=== PATIENT | female | born 1985 | race Caucasian/White ===

== ENCOUNTER → 2016-04-24 | Outpatient (REF) | payer OTHER ==
[~2016-04-24] MED LIST: BIOT50004 PO; HYDR-3713 PO; LUNE1TAB5 PO; MODA200T15 PO; NEXI40CA PO; PROP60TA14 PO; PROZ40CA PO; TRAZ50TA4 PO; ZYRT10CA PO
== END ==
LOC: M SFHCLERA 18:14
PROVIDERS: ATTEND Nurse Practitioner Family
DX: R30.0 Dysuria (principal)

== ENCOUNTER 2016-06-25 18:00 | Emergency (ER) | payer OTHER ==
[~2016-06-25] VITALS: Ht 154.9 cm; Wt 67.1 kg
[2016-06-25] MEDS ORDERED: NS 1,000 ML IV SCH (19:20)
[2016-06-25] MEDS ORDERED: ONDANSETRON 4MG/2ML VIAL (J2405) IV ONE (19:30)
[2016-06-25] MEDS: MORPHINE 2 MG/ML 1ML SYRINGE IV PRN ×3 (19:54→21:30)
[2016-06-25 20:02] LABS: BASO % 0.4 % (0.0-1.0); EOS % 0.5 % (0.0-3.0); LARGE UNSTAINED CELL # 0.1 K/mm3 (0.0-0.4); LARGE UNSTAINED CELL % 1.5 % (0.0-4.0); LYMPH # 1.8 K/mm3 (1.5-4.5); LYMPH % 24.5 % (24.0-44.0); MEAN CORPUSCULAR HGB CONC 33.5 g/dl (32.0-36.5); MEAN CORPUSCULAR VOLUME 89.5 fl (80.0-96.0); MONO # 0.3 K/mm3 (0.0-0.8); MONO % 4.4 % (0.0-5.0); NEUTROPHILS # 4.8 K/mm3 (1.8-7.7); NEUTROPHILS % 68.6 % (36.0-66.0); PLATELET COUNT, AUTOMATED 272 k/mm3 (150-450)
[2016-06-25 20:09] LABS: INR 0.94
[2016-06-25 20:17] LABS: CONTROL LINE HCG INT CTR LINE PRESENT
[2016-06-25 20:25] LABS: ALBUMIN/GLOBULIN RATIO 1.11 (1.00-1.93); ALKALINE PHOSPHATASE 77 U/L (45-117); ALT/SGPT 21 U/L (12-78); ANION GAP 7 MEQ/L (8-16); AST/SGOT 8 U/L (15-37); BILIRUBIN,DIRECT 0.1 MG/DL (0.0-0.2); BILIRUBIN,TOTAL 0.3 MG/DL (0.2-1.0); BLOOD UREA NITROGEN 13 MG/DL (7-18); CALCIUM LEVEL 8.6 MG/DL (8.5-10.1); CARBON DIOXIDE LEVEL 27 MEQ/L (21-32); CHLORIDE LEVEL 105 MEQ/L (98-107); CREATININE FOR GFR 0.81 MG/DL (0.55-1.02); GLOMERULAR FILTRATION RATE > 60.0 (>60); GLUCOSE, FASTING 97 MG/DL (70-105); POTASSIUM SERUM 4.1 MEQ/L (3.5-5.1); SODIUM LEVEL 139 MEQ/L (136-145); TOTAL PROTEIN 7.6 GM/DL (6.4-8.2)
--- NOTE | 2016-06-25 20:30 | REPUSA ---
CT of the abdomen and pelvis without contrast Clinical statement: Pain. Technique: Multiple axial CT images were obtained from the base of the lungs to the floor of the pelv is utilizing 5 mm axial slices without administration of contrast. Coronal and sagittal reconstructio ns were also obtained. No comparison is available. Findings: Chest: The visualized lung bases are clear. Abdomen: The kidneys are normal in size bilaterally. There is no evidence of hydronephrosis or nephro lithiasis. The liver, spleen, pancreas, gallbladder and adrenal glands are unremarkable. The aorta de monstrates normal caliber and contour. There is no abdominal lymphadenopathy or ascites. Pelvis: The bowel is unremarkable, with no obstructive or inflammatory changes. The urinary bladder i s within normal limits. There is no pelvic lymphadenopathy or ascites. The other pelvic structures ap pear unremarkable. Bones: There are no suspicious osseous abnormalities seen. Impression: Unremarkable CT examination of the abdomen and pelvis.
[2016-06-25] MEDS ORDERED: CIPROFLOXACIN 500 MG TAB PO ONE (21:45)
[2016-06-25] MEDS ORDERED: PHENAZOPYRIDINE 100 MG TAB PO ONE (21:45)
[2016-06-25] MEDS ORDERED: CIPR500T89 PO (21:47)
[2016-06-25] MEDS ORDERED: PYRI200T5 PO (21:47)
[2016-06-25 22:01] VITALS: BP 116/69
== END 2016-06-25 22:20 | disposition home or self-care (01) ==
LOC: M ED 19:18
DX: N39.0 Urinary tract infection, site not specified (principal)
CPT/HCPCS: 74176; 80048; 80076; 81001; 83690; 84703; 85025; 85610; 86850; 86900; 86901; 96374; 96375; 96376; 99282; J2405

== ENCOUNTER 2016-10-15 16:29 | Emergency (ER) | payer OTHER ==
[~2016-10-15] VITALS: Ht 157.5 cm; Wt 70.4 kg
[~2016-10-15 16:29] MED LIST changes: +CIPR-249 PO; +PYRI1TAB5 PO; +TRAZ50TA11 PO; -TRAZ50TA4 PO
[2016-10-15] MEDS ORDERED: PROV100T25 (16:40)
[2016-10-15] MEDS ORDERED: D 50CAP (16:40)
[2016-10-15] MEDS ORDERED: ZOLP10TA2 (16:40)
[2016-10-15] MEDS ORDERED: CELE1CAP4 (16:40)
[2016-10-15] MEDS ORDERED: VENL150C43 (16:40)
[2016-10-15] MEDS ORDERED: HYDR-2808 (16:40)
[2016-10-15] MEDS ORDERED: VENL75CA47 (16:40)
[2016-10-15] MEDS ORDERED: NS 1,000 ML IV ONE (18:00)
[2016-10-15 18:40] LABS: BASO # 0.1 K/mm3 (0.0-0.2); BASO % 1.2 % (0.0-1.0); EOS % 0.8 % (0.0-3.0); LARGE UNSTAINED CELL # 0.2 K/mm3 (0.0-0.4); LARGE UNSTAINED CELL % 3.4 % (0.0-4.0); LYMPH # 2.1 K/mm3 (1.5-4.5); LYMPH % 32.4 % (24.0-44.0); MEAN CORPUSCULAR HEMOGLOBIN 29.1 pg (27.0-33.0); MEAN CORPUSCULAR HGB CONC 32.5 g/dl (32.0-36.5); MEAN CORPUSCULAR VOLUME 89.6 fl (80.0-96.0); MONO # 0.4 K/mm3 (0.0-0.8); NEUTROPHILS # 3.3 K/mm3 (1.8-7.7); NEUTROPHILS % 55.1 % (36.0-66.0); PLATELET COUNT, AUTOMATED 296 k/mm3 (150-450); RED CELL DISTRIBUTION WIDTH 12.6 % (11.5-14.5)
[2016-10-15 18:45] LABS: CONTROL LINE UCG INT CTR LINE PRESENT
[2016-10-15 19:43] LABS: ALBUMIN 3.6 GM/DL (3.2-5.2); ALBUMIN/GLOBULIN RATIO 1.03 (1.00-1.93); ALKALINE PHOSPHATASE 63 U/L (45-117); ALT/SGPT 39 U/L (12-78); ANION GAP 6 MEQ/L (8-16); AST/SGOT 23 U/L (15-37); BILIRUBIN,DIRECT < 0.1 MG/DL (0.0-0.2); BILIRUBIN,TOTAL 0.2 MG/DL (0.2-1.0); BLOOD UREA NITROGEN 9 MG/DL (7-18); CALCIUM LEVEL 8.5 MG/DL (8.5-10.1); CARBON DIOXIDE LEVEL 27 MEQ/L (21-32); CHLORIDE LEVEL 107 MEQ/L (98-107); GLOMERULAR FILTRATION RATE > 60.0 (>60); GLUCOSE, FASTING 99 MG/DL (70-105); POTASSIUM SERUM 4.3 MEQ/L (3.5-5.1); SODIUM LEVEL 140 MEQ/L (136-145); TOTAL PROTEIN 7.1 GM/DL (6.4-8.2)
[2016-10-15 20:25] VITALS: BP 124/70
--- NOTE | 2016-10-15 21:02 | ECGEPIP ---
Stationary ECG Study [facility] - ED Test Date: 2016-10-15 Pat Name: AMRIT ATKINSON Department: Room: - Gender: F Parking Control Officer: sydni : 1985 Requested By: ELMER STEWART PA-C Order Number: [id number] Reading MD: Nicole Pina Measurements Intervals [place] Rate: 76 P: 58 [place]: 151 QRS: 51 QRSD: 82 T: -9 QT: 359 QTc: 405 Interpretive Statements SINUS RHYTHM MODERATE T-WAVE ABNORMALITY, CONSIDER ANTERIOR ISCHEMIA, COMPARED 03/07/14 Electronically Signed On 10-15-2016 21:02:06 EDT by Nicole Pina
== END 2016-10-15 20:25 | disposition home or self-care (01) ==
LOC: M ED 16:29
DX: E86.0 Dehydration (principal); R20.0 Anesthesia of skin

== ENCOUNTER → 2016-11-25 | Outpatient (CLI) | payer OTHER ==
[~2016-11-25] MED LIST changes: +CELE1CAP4; +D 50CAP; +HYDR-2808; +PROV100T25; +VENL150C43; +VENL75CA47; +ZOLP10TA2
== END ==
LOC: M OUTALCOH 12:42
PROVIDERS: ATTEND Psychiatry & Neurology Psychiatry
DX: Z13.9 Encounter for screening, unspecified (principal); F11.20 Opioid dependence, uncomplicated

== ENCOUNTER 2016-12-02 10:00 | Outpatient (RCR) | payer OTHER | END 2016-12-05 | LOC: M OUTALCOH 10:00 | PROVIDERS: ATTEND Psychiatry & Neurology Psychiatry | DX: F11.20 Opioid dependence, uncomplicated (principal); F17.200 Nicotine dependence, unspecified, uncomplicated ==

== ENCOUNTER → 2017-02-04 | Outpatient (RCR) | payer OTHER | LOC: M OUTALCOH 01-14 10:00 | PROVIDERS: ATTEND Psychiatry & Neurology Psychiatry | DX: F11.20 Opioid dependence, uncomplicated (principal); F17.200 Nicotine dependence, unspecified, uncomplicated ==

== ENCOUNTER 2017-02-09 10:00 | Outpatient (RCR) | payer OTHER | END 2017-03-07 | LOC: M OUTALCOH 02-11 10:00 | DX: F11.20 Opioid dependence, uncomplicated (principal); F17.200 Nicotine dependence, unspecified, uncomplicated ==

== ENCOUNTER 2017-03-18 15:42 | Outpatient (RCR) | payer OTHER | END 2017-04-07 | LOC: M OUTALCOH 15:42 | DX: F11.20 Opioid dependence, uncomplicated (principal); F17.200 Nicotine dependence, unspecified, uncomplicated ==

== ENCOUNTER 2017-04-08 15:59 | Outpatient (RCR) | payer OTHER | END 2017-05-05 | LOC: M OUTALCOH 15:59 | DX: F11.20 Opioid dependence, uncomplicated (principal); F17.200 Nicotine dependence, unspecified, uncomplicated ==

== ENCOUNTER → 2023-12-16 | Outpatient (REF) ==
[~2023-12-16] MED LIST changes: -BIOT50004 PO; +BIOT5CAP8 PO; -HYDR-2808; +HYDR-4429; +TRAZ-252 PO; -TRAZ50TA11 PO
== END ==
LOC: M EMP 14:14
PROVIDERS: ATTEND Family Medicine
DX: Z20.822 Contact with and (suspected) exposure to COVID-19 (principal)